=== PATIENT | female | born 1990 | race Caucasian/White ===

== ENCOUNTER 2016-11-26 09:53 | Emergency (ER) | payer BC ==
[~2016-11-26] VITALS: Ht 165.1 cm; Wt 71.9 kg
[~2016-11-26 09:53] MED LIST: LEVOIUD; MULTTAB58 PO
[2016-11-26 09:59] VITALS: TEMP 36.7; Ht 165.1 cm; Wt 71.9 kg
[2016-11-26 10:07] VITALS: O2SAT 100
[2016-11-26] MEDS ORDERED: ONDANSETRON INJ 2 MG/ML 2 ML VIAL IV STA (10:22)
[2016-11-26] MEDS ORDERED: SODIUM CHLORIDE 0.9% 1000ML 1,000 ML IV STA (10:22)
--- NOTE | 2016-11-26 10:25 | EMERGENCY ROOM VISIT NOTE ---
History Report prepared by April: Pati Díaz Under the Supervision of: Dr. Kirby Myers M.D. First contact with patient: 10:06 Chief Complaint: CHEST PAIN Stated Complaint: CHEST PAIN Nursing Triage Summary: .pt reports she has mid chest pain strated yesterday is intermittent. feels nauseated no vomiting or sob. describes as burning . pt given 4 asa. has hx of abscessed tooth no appt to take care of pain does not radiate History of Present Illness The patient is a 26 year old white female with a past medical history of dental abscess who presents to the ED with a cc of intermittent burning central chest pain beginning last night. The patient states that she developed burning chest pain last night that was still present this morning. She reports that the pain is worsened by walking but is not worsened by eating or sitting up and laying down. She notes that she went to [employer] this morning and her heart rate was elevated so they sent her in to the ED. Pt notes that she has an abscess in her tooth and is not on any medication for it. Positive cough, cold symptoms, nausea beginning a few days ago. Negative leg swelling, vomiting, recent stress , recent travel, prolonged sitting, family history of blood clots. She notes that she is on the jazz. Her father had a heart attack at the age of 47. At [facility] she had 4 baby aspirin that improved her symptoms. Source of History: patient Onset: last night Position: chest Quality: burning Timing: intermittent Modifying Factors (Worsening): exertion Associated Symptoms: + cough, + nausea, No vomiting Note: Positive cold symptoms. Negative leg swelling. Review of Systems See HPI for pertinent positives and negatives. A total of ten systems were reviewed and were otherwise negative. Family History FH: heart attack Social History Smoking Status: Never Smoker Marital Status: Housing Status: lives with significant other Occupation Status: employed Current/Historical Medications Scheduled Multiple Vitamin (Multivitamin), 1 TAB PO DAILY Penicillin V Potassium (Veetids), 500 MG PO QID Miscellaneous Medications Levonorgestrel (Iud) (Mirena) Allergies Coded Allergies: No Known Allergies (Unverified , 11/26/16) Physical Exam Vital Signs Date Time Temp Pulse Resp B/P (MAP) Pulse Ox O2 Delivery O2 Flow Rate FiO2 11/26/16 13:35 79 14 103/62 97 11/26/16 13:08 79 14 103/62 97 11/26/16 12:00 79 13 109/61 98 Room Air 11/26/16 11:30 69 17 104/58 99 Room Air 11/26/16 10:58 82 19 121/67 99 Room Air 11/26/16 10:08 86 11/26/16 10:07 100 Room Air 11/26/16 09:59 36.7 95 18 143/84 100 Room Air Physical Exam GENERAL: Awake, alert, well-appearing, NAD HENT: Two premolars that the crown is absent with no fluctuance to the lateral aspect of the mandible, no sublingual or submantle swelling. EYES: Normal conjunctiva. Sclera non-icteric. NECK: Supple. No nuchal rigidity. FROM. RESPIRATORY: CTAB, no rhonchi, wheezing, crackles CARDIAC: RRR, no MRG ABDOMEN: Soft, NTND, BS+ MSK: No chest wall TTP, no LE edema NEURO: GCS 15, CN 2-12 intact, moves all 4s on command SKIN: No rash or jaundice noted. No LE swelling, no asymmetry, no calf pain. Medical Decision & Procedures ER Provider Diagnostic Interpretation: X-ray: Per my interpretation, radiologist review. CHEST ONE VIEW PORTABLE FINDINGS: The lungs are clear. Cardiac silhouette is normal in size. No pleural effusions. No pneumothorax. IMPRESSION: No acute process. Electronically signed by: Giorgio Carrizales M.D. 11/26/2016 10:58 AM Dictated Date/Time: 11/26/2016 10:57 AM Laboratory Results 11/26/16 10:45 Red Blood Count 4.69, Mean Corpuscular Volume 89.1, Mean Corpuscular Hemoglobin 30.3, Mean Corpuscular Hemoglobin Concent 34.0, Mean Platelet Volume 9.1, Neutrophils (%) (Auto) 86.1, Lymphocytes (%) (Auto) 9.5, Monocytes (%) (Auto) 3.3, Eosinophils (%) (Auto) 0.5, Basophils (%) (Auto) 0.3, Neutrophils # (Auto) 10.32, Lymphocytes # (Auto) 1.14, Monocytes # (Auto) 0.40, Eosinophils # (Auto) 0.06, Basophils # (Auto) 0.04 11/26/16 10:45 Test 11/26/16 10:45 White Blood Count 11.99 K/uL (4.8-10.8) Red Blood Count 4.69 M/uL (4.2-5.4) Hemoglobin 14.2 g/dL (12.0-16.0) Hematocrit 41.8 % (37-47) Mean Corpuscular Volume 89.1 fL (80-100) Mean Corpuscular Hemoglobin 30.3 pg (25-34) Mean Corpuscular Hemoglobin Concent 34.0 g/dl (32-36) Platelet Count 316 K/uL (130-400) Mean Platelet Volume 9.1 fL (7.4-10.4) Neutrophils (%) (Auto) 86.1 % Lymphocytes (%) (Auto) 9.5 % Monocytes (%) (Auto) 3.3 % Eosinophils (%) (Auto) 0.5 % Basophils (%) (Auto) 0.3 % Neutrophils # (Auto) 10.32 K/uL (1.4-6.5) Lymphocytes # (Auto) 1.14 K/uL (1.2-3.4) Monocytes # (Auto) 0.40 K/uL (0.11-0.59) Eosinophils # (Auto) 0.06 K/uL (0-0.5) Basophils # (Auto) 0.04 K/uL (0-0.2) RDW Standard Deviation 43.6 fL (36.4-46.3) RDW Coefficient of Variation 13.3 % (11.5-14.5) Immature Granulocyte % (Auto) 0.3 % Immature Granulocyte # (Auto) 0.03 K/uL (0.00-0.02) Prothrombin Time 10.9 SECONDS (9.0-12.0) Prothromb Time International Ratio 1.0 (0.9-1.1) Activated Partial Thromboplast Time 28.3 SECONDS (21.0-31.0) Partial Thromboplastin Ratio 1.1 Anion Gap 8.0 mmol/L (3-11) Est Creatinine Clear Calc Drug Dose 109.5 ml/min Estimated GFR () 123.7 Estimated GFR (Non- 106.8 BUN/Creatinine Ratio 10.9 (10-20) Calcium Level 8.9 mg/dl (8.5-10.1) Total Bilirubin 0.6 mg/dl (0.2-1) Direct Bilirubin 0.1 mg/dl (0-0.2) Aspartate Amino Transf (AST/SGOT) 14 U/L (15-37) Alanine Aminotransferase (ALT/SGPT) 30 U/L (12-78) Alkaline Phosphatase 66 U/L (45-117) Troponin I < 0.015 ng/ml (0-0.045) Total Protein 6.8 gm/dl (6.4-8.2) Albumin 3.9 gm/dl (3.4-5.0) Lipase 71 U/L (73-393) Laboratory results reviewed by me Medications Administered Medications (Trade) Dose Ordered Sig/Malachi Route Start Time Stop Time Status Last Admin Dose Admin Ondansetron HCl (Zofran Inj) 4 mg NOW STAT IV 11/26/16 10:22 11/26/16 10:24 DC 11/26/16 10:57 4 MG Sodium Chloride 1,000 ml @ 999 mls/hr Q1H1M STAT IV 11/26/16 10:22 11/26/16 11:22 DC 11/26/16 10:57 999 MLS/HR Al Hydroxide/Mg Hydroxide (Maalox Susp) 30 ml STK-MED ONCE .ROUTE 11/26/16 10:53 11/26/16 10:54 DC 11/26/16 10:57 30 ML Lidocaine HCl (Viscous Lidocaine 2% Soln) 20 ml STK-MED ONCE .ROUTE 11/26/16 10:53 11/26/16 10:54 DC 11/26/16 10:57 20 ML ECG Indication: chest pain Rate (beats per minute): 78 Rhythm: normal sinus Findings: no ectopy, other (normal intervals, no STS changes or T wave inversions) ED Course 1006: The patient was evaluated in room B8. A complete history and physical exam was performed. 1022: Sodium Chloride 1000 ml @ 999 mls/hr IV, Zofran Inj 4mg IV. 1042: GI Cocktail 24ml PO. 1204: I reevaluated and updated the patient. 1245: I reevaluated the patient. Discussed results and discharge instructions: She verbalized understanding and agreement. The patient is ready for discharge. Medical Decision The patient is a 26 year old white female with a past medical history of dental abscess who presents to the ED with a cc of intermittent burning central chest pain beginning last night. Differential diagnosis: Etiologies such as cardiac ischemia, aortic dissection, pulmonary embolism, pneumonia, pneumothorax, musculoskeletal, infections, pericarditis, myocarditis , esophageal rupture, gastrointestinal, as well as others were entertained. Patient was seen and evaluated at the bedside. Patient had waxing and waning intermittent chest pains described as burning central nonradiating. Patient states she has not had any recent prolonged travel in the lower extremity swelling. Patient does use OCPs with a Mirena. Patient denies any hemoptysis, cancer. Patient does state that she does have an early family history of PR. Her father had one in his 40s. Patient does not describe any exertional chest pain, PND, or orthopnea. Patient had blood work, EKG, chest x-ray. Patient is a Wells 0 less likely PE. HEART Score of 1. EKG non-ischemic and negative troponoin. Patient told to follow up w/ cardiology given her family hx. WBC 12. CXR clear. Unlikely infectious. Patient given Pen VK given patient's chronic dental issues. No swelling to mouth at this time. No need for scans. Abx appropriate and dental f/u. Given f/u, d/c, and return precautions and was d/c' ed to home. Medication Reconcilliation Current Medication List: was personally reviewed by me Blood Pressure Screening Patient's blood pressure: Elevated blood pressure Blood pressure disposition: Elevated BP felt to be situational Impression Primary Impression: Chest pain Scribe Attestation The scribe's documentation has been prepared under my direction and personally reviewed by me in its entirety. I confirm that the note above accurately reflects all work, treatment, procedures, and medical decision making performed by me. Departure Information Dispostion Home / Self-Care Prescriptions Penicillin V Potassium (Veetids) 500 Mg Tab 500 MG PO QID for 7 Days, #28 TAB Prov: Kirby Myers M.D. 11/26/16 Referrals Cristiano Mccloud PA-C (PCP) Patient Instructions Chest Pain - [facility], [facility] Additional Instructions Please return to the emergency department if you have worsening or recurrent symptoms not amenable to at-home treatment. Please call for a follow-up appointment with her primary care physician. Please take your medications as prescribed. If you have other concerns and/or complaints please feel free to also call your primary care physician's office or return the ED for further evaluation, management, and treatment. You were found to have an elevated blood pressure today (>120 sytolic or >90 diastolic). Per medicare guidelines, you need to follow up with this blood pressure screening with your Primary Care Physician (PCP). For a new PCP call [phone]. You received narcotic or benzodiazepene medication while in the emergency room today. This is an addictive medication that may cause drowziness as well as constipation. Do not drive, operate heavy machinery, or drink alcohol under the influence of this medication. You may take 600 mg Ibuprofen every 6 hours as needed for pain with food for no more than 2 consecutive days. You may take tylenol 1000mg every 6 hours as needed for pain. You may take motrin and tylenol separately or at the same time. Consider taking a Zantac daily. You have been examined and treated today on an emergency basis only. This is not a substitute for, or an effort to provide, complete comprehensive medical care. It is impossible to recognize and treat all injuries or illnesses in a single emergency department visit. It is therefore important that you follow up closely with [facility]. Call as soon as possible for an appointment. Thank you for your time and consideration. I look forward to speaking with you again soon. Please don't hesitate to call us if you have any questions. Problem Qualifiers Primary Impression: Chest pain Chest pain type: unspecified Qualified Codes: R07.9 - Chest pain, unspecified
[2016-11-26] MEDS ORDERED: GI COCKTAIL PO STA (10:42)
[2016-11-26] MEDS ORDERED: ALUMINUM/MAGNESIUM SUSP 30 ML UDC ONE (10:53)
[2016-11-26] MEDS ORDERED: LIDOCAINE HCL 2% VISC SOLN 20 ML UDC ONE (10:53)
--- NOTE | 2016-11-26 10:59 | DIAGNOSTIC IMAGING REPORT ---
CHEST ONE VIEW PORTABLE HISTORY: Atypical CHEST PAIN COMPARISON: None. FINDINGS: The lungs are clear. Cardiac silhouette is normal in size. No pleural effusions. No pneumothorax. IMPRESSION: No acute process. Electronically signed by: Giorgio Carrizales M.D. 11/26/2016 10:58 AM Dictated Date/Time: 11/26/2016 10:57 AM
[2016-11-26 11:09] LABS: HEMATOCRIT 41.8 % (37-47); MEAN CELL VOLUME 89.1 fL (80-100); MEAN CORPUSCULAR HEMOGLOBIN 30.3 pg (25-34); MEAN PLATELET VOLUME 9.1 fL (7.4-10.4); PLATELET COUNT 316 K/uL (130-400); RED BLOOD COUNT 4.69 M/uL (4.2-5.4); WHITE BLOOD COUNT 11.99 K/uL (4.8-10.8)
[2016-11-26 11:20] LABS: ALT/SGPT 30 U/L (12-78); AST/SGOT 14 U/L (15-37); BLOOD UREA NITROGEN 8 mg/dl (7-18); BUN/CREATININE RATIO 10.9 (10-20); CALCIUM 8.9 mg/dl (8.5-10.1); CARBON DIOXIDE 22 mmol/L (21-32); CHLORIDE 111 mmol/L (98-107); CREATININE 0.76 mg/dl (0.60-1.20); GLUCOSE 110 mg/dl (70-99); PARTIAL THROMBOPLASTIN RATIO 1.1; POTASSIUM 4.2 mmol/L (3.5-5.1); PROTHROMBIN TIME (PATIENT) 10.9 SECONDS (9.0-12.0); SODIUM 141 mmol/L (136-145)
[2016-11-26 11:25] LABS: ALKALINE PHOSPHATASE 66 U/L (45-117)
[2016-11-26 11:31] LABS: BASO % 0.3 %; BASO ABS # 0.04 K/uL (0-0.2); COMPLETE YES; EOS % 0.5 %; IG% 0.3 %; LYMPH % 9.5 %; LYMPH ABS # 1.14 K/uL (1.2-3.4); MONO % 3.3 %; NEUT % 86.1 %
[2016-11-26] MEDS ORDERED: PENI-82 PO (12:42)
[2016-11-26 13:35] VITALS: BP 103/62; PULSE 79; O2SAT 97
== END 2016-11-26 13:35 | disposition home or self-care (01) ==
LOC: EDBD 09:53 → C.EDB 09:57
DX: R07.9 Chest pain, unspecified (principal); K04.7 Periapical abscess without sinus; Z82.49 Family history of ischemic heart disease and other diseases of the circulatory system